=== PATIENT | female | born 1995 | race Caucasian/White ===

== ENCOUNTER → 2016-12-31 | Outpatient (CLI) | payer OTHER ==
[~2016-12-31] MED LIST: HYDR-3419 PO; OMEP20TA PO
--- NOTE | 2016-12-31 13:49 | DIAGNOSTIC IMAGING REPORT ---
NUCLEAR GASTRIC EMPTYING STUDY: CLINICAL HISTORY: EARLY SATIETY COMPARISON STUDY: None TECHNIQUE: Following the oral administration of 1.1 mCi of technetium 99m sulfur colloid in egg sandwich and 8 ounces of water, static abdominal images are performed anteriorly and posteriorly at 0 minutes, 1 hour, 2 hours, and 4 hour time intervals. Gastric emptying was calculated utilizing the geometric mean method. FINDINGS: There is approximately 82 % gastric activity remaining at the 1 hour time interval, 64 % at the 2 hour time interval (normal is less than 60%), and 24 % remaining at the 4 hour time interval (normal is less than 10%). These findings are consistent with abnormal study with delayed gastric emptying IMPRESSION: Findings are consistent with abnormal study with mildly delayed gastric emptying. Electronically signed by: Fei Torres M.D. 12/31/2016 1:48 PM Dictated Date/Time: 12/31/2016 1:47 PM
== END | disposition home or self-care (01) ==
LOC: C.NUCL 08:07
PROVIDERS: ATTEND Internal Medicine Gastroenterology
DX: R68.81 Early satiety (principal)